=== PATIENT | female | born 1970 | race Caucasian/White ===

== ENCOUNTER 2016-04-08 11:46 | Emergency (ER) | payer BC, MEDICAID ==
[~2016-04-08] VITALS: Ht 160 cm; Wt 77.1 kg
[2016-04-08 12:44] VITALS: BP 128/74
== END 2016-04-08 12:45 | disposition home or self-care (01) ==
LOC: ER 11:49
DX: F41.9 Anxiety disorder, unspecified (principal); I10 Essential (primary) hypertension
CPT/HCPCS: 93005; 99283; A4606; Z7610

== ENCOUNTER 2016-11-29 14:16 | Emergency (ER) | payer MEDICAID ==
[~2016-11-29] VITALS: Ht 154.9 cm; Wt 66.7 kg
--- NOTE | 2016-11-29 15:15 | NUR ---
PATIENT PRESENTS TO ER C/O LEFT SIDE FACIAL PAIN, L EAR ACHE, CHEST WALL PAIN, COUGH/CONGESTION SINCE FRIDAY. PATIENT IS A/O X4. BREATHING EVEN AND UNLABORED. NO SOB. VITALS STABLE. SAFETY AND COMFORT MEASURES IN PLACE. AWAITING MD ORDERS.
--- NOTE | 2016-11-29 15:45 | NUR ---
PATIENT TAKEN TO XRAY VIA WHEELCHAIR.
--- NOTE | 2016-11-29 15:55 | NUR ---
PATIENT RETURNED FROM XRAY IN STABLE CONDITION.
--- NOTE | 2016-11-29 15:56 | NUR ---
PATIENT MEDICATED PER MD ORDERS.
[2016-11-29 17:48] VITALS: BP 135/65
--- NOTE | 2016-11-29 17:48 | NUR ---
Patient discharged to home in stable condition. Written and verbal after care instructions given. Patient verbalizes understanding of instruction.
== END 2016-11-29 17:55 | disposition home or self-care (01) ==
LOC: ER 14:18
DX: R68.84 Jaw pain (principal)
CPT/HCPCS: 70110; 99284; A4606; Z7610

== ENCOUNTER 2017-01-15 12:17 | Emergency (ER) | payer MEDICAID ==
[~2017-01-15] VITALS: Ht 165.1 cm; Wt 72.6 kg
--- NOTE | 2017-01-15 12:30 | NUR ---
[id number] FROM [facility]: [email or web address]
[2017-01-15] MEDS ORDERED: LORAZEPAM 1 MG TABLET ONE (13:56)
[2017-01-15] MEDS ORDERED: LORAZEPAM 1 MG TABLET PO ONE (14:00)
[2017-01-15 14:13] LABS: BASOPHILS # (AUTO) 0.1 /CMM (0.0-0.2); BASOPHILS % (AUTO) 0.8 % (0.0-2.0); EOSINOPHILS # (AUTO) 0.2 /CMM (0.0-0.7); EOSINOPHILS % (AUTO) 1.9 % (0.0-6.0); HEMATOCRIT 39 % (33-45); HEMOGLOBIN 13.2 g/dL (11.5-14.8); LYMPHOCYTES # (AUTO) 2.6 /CMM (0.8-4.8); LYMPHOCYTES % (AUTO) 32.4 % (20.0-44.0); MEAN CORPUSCULAR HEMOGLOBIN 31 PG (26.0-33.0); MEAN CORPUSCULAR HGB CONC 34 g/dl (31.0-36.0); MEAN CORPUSCULAR VOLUME 92 fL (82-100); MONOCYTES # (AUTO) 0.3 /CMM (0.1-1.30); MONOCYTES % (AUTO) 3.5 % (2.0-12.0); NEUTROPHILS # (AUTO) 4.9 /CMM (1.8-8.9); NEUTROPHILS % (AUTO) 61.4 % (43.0-81.0); PLATELET COUNT (AUTO) 277 /CMM (150-450); RED BLOOD CELL COUNT(AUTO) 4.25 MIL/uL (4.0-5.2); WHITE BLOOD COUNT (AUTO) 8.1 K/uL (4.3-11.0)
[2017-01-15 14:22] LABS: CALCIUM, SERUM 9.1 mg/dL (8.5-10.1); CARBON DIOXIDE 27 mmol/L (21-32); CHLORIDE 104 mmol/L (98-107); CREATININE 0.8 mg/dL (0.6-1.3); GLUCOSE 96 mg/dL (74-106); POTASSIUM 4.2 mmol/L (3.5-5.1); SODIUM SERUM 138 mmol/L (136-145); UREA NITROGEN, BLOOD 16 mg/dL (7-18)
[2017-01-15 14:26] LABS: INR 0.95 (0.87-1.13); PROTHROMBIN TIME 9.9 SECS (9.5-12.7)
[2017-01-15 14:34] LABS: TROPONIN I < 0.017 ng/mL (0.00-0.056)
[2017-01-15 15:00] VITALS: BP 130/78
--- NOTE | 2017-01-15 15:00 | NUR ---
Patient discharged to home in stable condition. Written and verbal after care instructions given. Patient verbalizes understanding of instruction.
== END 2017-01-15 15:01 | disposition home or self-care (01) ==
LOC: ER 12:28
DX: F41.9 Anxiety disorder, unspecified (principal); I10 Essential (primary) hypertension; F17.200 Nicotine dependence, unspecified, uncomplicated; R79.1 Abnormal coagulation profile
CPT/HCPCS: 36415; 71010; 80048; 84484; 85025; 85730; 93005 ×2; 99285; A4606; Z7610